=== PATIENT | female | born 1970 | race Caucasian/White ===

== ENCOUNTER 2023-04-10 20:48 | Emergency (ER) | payer SELFPAY ==
[~2023-04-10] VITALS: Ht 167.6 cm; Wt 90.0 kg
[2023-04-10 20:55] VITALS: TEMP 98.7; O2SAT 98
[2023-04-10 22:00] VITALS: BP 156/90; PULSE 70; RESP 18
[2023-04-10] MEDS ORDERED: HYDROCODONE/ACETAMINOPHEN 10/325MG TABLET PO ONE (22:00)
[2023-04-10] MEDS ORDERED: KETOROLAC 60MG/2ML VIAL IM ONE (22:00)
[2023-04-11] MEDS ORDERED: CYCL5TAB MT (02:15)
[2023-04-11] MEDS ORDERED: IBUP-2030 MT (02:15)
== END 2023-04-11 04:15 | disposition home or self-care (01) ==
LOC: EDSEX 20:48 → ER 20:48
DX: M54.2 Cervicalgia (principal); R51.9 Headache, unspecified; M54.6 Pain in thoracic spine
CPT/HCPCS: 96372; 99285; 70450; 72125; 72128; J1885; Z7610